=== PATIENT | female | born 1945 | race Caucasian/White ===

== ENCOUNTER 2018-09-02 19:05 | Emergency (ER) | payer MEDICARE, OTHER ==
[~2018-09-02] VITALS: Ht 162.6 cm; Wt 86.4 kg
[2018-09-02 19:06] VITALS: BP 158/72
[2018-09-02] MEDS ORDERED: ROSU5TAB4 (19:21)
[2018-09-02] MEDS ORDERED: ASPI1TAB PO (19:21)
[2018-09-02] MEDS ORDERED: REST0.057 (19:21)
[2018-09-02] MEDS ORDERED: AMLO5TAB6 (19:21)
[2018-09-02] MEDS ORDERED: LISI40TA (19:21)
[2018-09-02] MEDS ORDERED: TIMO0.5S29 (19:21)
[2018-09-02] MEDS ORDERED: FURO20TA2 (19:21)
[2018-09-02] MEDS ORDERED: predniSONE 20 MG TAB PO ONE (20:45)
[2018-09-02] MEDS ORDERED: diphenhydrAMINE 50 MG CAP PO ONE (20:45)
[2018-09-02] MEDS ORDERED: OMEPRAZOLE 20 MG CAP PO ONE (20:45)
[2018-09-02] MEDS ORDERED: PRIL20TA2 PO (20:48)
[2018-09-02] MEDS ORDERED: BENA25CA4 PO (20:48)
[2018-09-02] MEDS ORDERED: PRED10TA2 PO (20:48)
== END 2018-09-02 21:06 | disposition home or self-care (01) ==
LOC: M ED 19:05
DX: L25.9 Unspecified contact dermatitis, unspecified cause (principal); Z79.899 Other long term (current) drug therapy; Z79.82 Long term (current) use of aspirin; Z88.8 Allergy status to other drugs, medicaments and biological substances; Z91.048 Other nonmedicinal substance allergy status

== ENCOUNTER 2019-02-20 09:38 | Day surgery (SDC) | payer MEDICARE, OTHER ==
[~2019-02-20] VITALS: Ht 162.6 cm; Wt 82.9 kg
[~2019-02-20 09:38] MED LIST: ALL10TAB28 PO; AMLO5TAB6 PO; ASPI81TA26 PO; AZEL1SPR3; BENA25CA4 PO; CLOB0.0526; FURO20TA2 PO; HYDR25OI; LISI40TA; LOSA50TA88 PO; NS 1,000 ML IV ONE; PRED10TA2 PO; PRIL20TA2 PO; REST0.057 OU; ROSU5TAB4 PO; TIMO0.5S29 OU
[2019-02-20] MEDS ORDERED: LIDOCAINE 2% INJ 100 MG/5 ML SDV (FOR ANES.) As Ordered ONE (10:51)
[2019-02-20] MEDS ORDERED: PROPOFOL 200 MG/20 ML VIAL As Ordered ONE (10:51)
--- NOTE | 2019-02-20 10:53 | ROOR ---
Patient Name: Glo Atwood Procedure Date: 02/20/2019 10:40 AM Date of : 1945 Age: 73 Room: [facility] Gender: Female Note Status: Finalized Procedure: Upper Endoscopy + Biopsies Indications: Heartburn, Exclusion of Canales's esophagus Providers: Mina Zavala MD Referring MD: Ronnie Reardon MD Requesting Provider: Medicines: Monitored Anesthesia Care Complications: No immediate complications. Procedure: Pre-Anesthesia Assessment: - The heart rate, respiratory rate, oxygen saturations, blood pressure, adequacy of pulmonary ventilation, and response to care were monitored throughout the procedure. The Endoscope was introduced through the mouth, and advanced to the second part of duodenum. The upper GI endoscopy was accomplished without difficulty. The patient tolerated the procedure well. Findings: The Z-line was regular and was found 35 cm from the incisors. Multiple biopsies were obtained with cold forceps for evaluation to rule out Canales's Esophagus randomly at the gastroesophageal junction. A small hiatal hernia was present. No other significant abnormalities were identified in a careful examination of the stomach. The exam of the duodenum was otherwise normal. Impression: - Z-line regular, 35 cm from the incisors. - Small hiatal hernia. - Multiple biopsies were obtained at the gastroesophageal junction. - The examination was otherwise normal. Recommendation: - Patient has a contact number available for emergencies. The signs and symptoms of potential delayed complications were discussed with the patient. Return to normal activities tomorrow. Written discharge instructions were provided to the patient. - High fiber diet. - Discharge patient to home. - Follow an antireflux regimen. - Continue present medications. - Await pathology results. - Telephone GI clinic for pathology results in 1 week. - Return to referring physician. - The findings and recommendations were discussed with the patient's family. Mina Zavala MD Mina Zavala MD 02/20/2019 10:53:18 AM Electronically signed by Mina Zavala MD Number of Addenda: 0 Note Initiated On: 02/20/2019 10:40 AM Estimated Blood Loss: Estimated blood loss: none.
--- NOTE | 2019-02-20 11:12 | ROOR ---
Patient Name: Glo Atwood Procedure Date: 02/20/2019 10:40 AM Date of : 1945 Age: 73 Room: [facility] Gender: Female Note Status: Finalized Procedure: Total Colonoscopy to Cecum Indications: Screening for colorectal malignant neoplasm Providers: Mina Zavala MD Referring MD: Ronnie Reardon MD Requesting Provider: Medicines: Monitored Anesthesia Care Complications: No immediate complications. Procedure: Pre-Anesthesia Assessment: - The heart rate, respiratory rate, oxygen saturations, blood pressure, adequacy of pulmonary ventilation, and response to care were monitored throughout the procedure. The Colonoscope was introduced through the anus and advanced to the cecum, identified by appendiceal orifice and ileocecal valve. The colonoscopy was performed without difficulty. The patient tolerated the procedure well. The quality of the bowel preparation was excellent. Findings: The perianal and digital rectal examinations were normal. Non-bleeding internal hemorrhoids were found during retroflexion. The hemorrhoids were small and Grade I (internal hemorrhoids that do not prolapse). No other significant abnormalities were identified in a careful examination of the remainder of the colon. The exam was otherwise without abnormality on direct and retroflexion views. Impression: - Non-bleeding internal hemorrhoids. - The examination was otherwise normal on direct and retroflexion views. - No specimens collected. - The exam was otherwise normal to the cecum. Recommendation: - Patient has a contact number available for emergencies. The signs and symptoms of potential delayed complications were discussed with the patient. Return to normal activities tomorrow. Written discharge instructions were provided to the patient. - High fiber diet. - Discharge patient to home. - Continue present medications. - Repeat colonoscopy for symptoms only. - Return to referring physician. - The findings and recommendations were discussed with the patient's family. Mina Zavala MD Mina Zavala MD 02/20/2019 11:11:43 AM Electronically signed by Mina Zavala MD Number of Addenda: 0 Note Initiated On: 02/20/2019 10:40 AM Estimated Blood Loss: Estimated blood loss: none.
[2019-02-20 11:40] VITALS: BP 142/71
== END 2019-02-20 12:00 | disposition home or self-care (01) ==
LOC: M OPP 09:38
PROVIDERS: ATTEND Internal Medicine Gastroenterology
DX: K64.0 First degree hemorrhoids (principal); K44.9 Diaphragmatic hernia without obstruction or gangrene; R12 Heartburn; Z12.11 Encounter for screening for malignant neoplasm of colon

== ENCOUNTER → 2019-07-25 | Outpatient (REF) | payer MEDICARE, OTHER ==
[~2019-07-25] MED LIST changes: -ALL10TAB28 PO; +ALL10TAB29 PO; -NS 1,000 ML IV ONE; -ROSU5TAB4 PO; +ROSU5TAB5 PO
[2019-07-25 13:36] LABS: APPEARANCE, URINE CLEAR (CLEAR); BACTERIA, URINE AUTO NEGATIVE (NEGATIVE); BILIRUBIN, URINE AUTO NEGATIVE (NEGATIVE); BLOOD, URINE BLOOD NEGATIVE (NEGATIVE); COLOR, URINE YELLOW (YELLOW); GLUCOSE, URINE (UA) AUTO NEGATIVE (NEGATIVE); KETONE, URINE AUTO NEGATIVE (NEGATIVE); LEUKOCYTE ESTERASE, URINE AUTO TRACE (NEGATIVE); MUCUS, URINE SMALL (NEGATIVE); NITRITE, URINE AUTO NEGATIVE (NEGATIVE); PROTEIN, URINE AUTO NEGATIVE (NEGATIVE); RBC, URINE AUTO 1 /HPF (0-3); SPECIFIC GRAVITY URINE AUTO 1.014 (1.002-1.035); SQUAMOUS EPITHELIAL CELL UR AU 0 /HPF (0-6); UROBILINOGEN, URINE AUTO 0.2 mg/dL (0.0-2.0); WBC, URINE AUTO 4 /HPF (0-3)
== END ==
LOC: M SMT 13:15
PROVIDERS: ATTEND Nurse Practitioner Women's Health
DX: N39.0 Urinary tract infection, site not specified (principal)
CPT/HCPCS: 81001; 87086; G0463

== ENCOUNTER → 2019-08-01 | Outpatient (CLI) | payer MEDICARE, OTHER ==
--- NOTE | 2019-08-01 16:07 | REP ---
CT abdomen and pelvis without IV or oral contrast: Renal stone protocol. History: History of kidney stones. Pyuria. No comparison CT study. CT findings: Preliminary digital bottle label inspector radiograph shows a normal bowel gas pattern. There is a small sliding-type hiatal hernia. The lung bases are clear on axial CT images. No adrenal lesion is seen. There is a tiny accessory splenule. The liver and spleen are normal in size and homogeneous in texture. No abnormalities noted in the pancreas. The gallbladder is small and contracted but otherwise unremarkable. There is no evidence of hydronephrosis, cyst or mass. There is a 3 mm intrarenal calculus in the upper pole of the right kidney. There is no evidence of intrarenal nephrolithiasis on the left. No ureteral stone is observed. The bladder is largely empty at the time of scanning but unremarkable. Uterus is surgically absent. No pelvic mass or adenopathy is seen. Normal appendix is noted. Small and large bowel loops are unremarkable. Impression: There is a 3 mm intrarenal calculus in the upper pole of the right kidney. No other urinary tract calculus is seen. Status post hysterectomy. Small sliding hiatal hernia. Electronically Signed by Varinder Kearney MD 08/01/2019 05:21 P
== END ==
LOC: M RAD 15:02
PROVIDERS: ATTEND Nurse Practitioner Women's Health
DX: N20.0 Calculus of kidney (principal); K44.9 Diaphragmatic hernia without obstruction or gangrene; N39.0 Urinary tract infection, site not specified

== ENCOUNTER → 2021-03-11 | Outpatient (CLI) | payer MEDICARE, OTHER ==
[~2021-03-11] MED LIST changes: -ALL10TAB29 PO; +AMLO1TAB24 PO; -AMLO5TAB6 PO; +CETI-24 PO; -LISI40TA; +LISI40TA4
--- NOTE | 2021-03-11 12:06 | REP ---
INDICATION: PAIN IN LEFT KNEE COMPARISON: 01/15/2017. TECHNIQUE: Five views left knee. FINDINGS: There is no evidence of acute fracture, dislocation, or intrinsic bone disease.There is mild medial joint space narrowing. There is mild diffuse patellar spurring. There is moderate narrowing of the patellofemoral joint with subchondral sclerosis. There is no radiographic evidence of a significant joint effusion. IMPRESSION: No fracture or dislocation. There are degenerative changes as discussed above. <Electronically signed by Arvin Marr > 03/11/21 [id number]
== END ==
LOC: M PLAIMG 09:52 → M PLALAB 09:52
PROVIDERS: ATTEND Family Medicine
DX: M25.562 Pain in left knee (principal)

== ENCOUNTER → 2021-04-04 | Outpatient (CLI) | payer MEDICARE, OTHER ==
--- NOTE | 2021-04-04 13:00 | REPMRS ---
Patient History The patient states she has not had a clinical breast exam in over a year. Patient has history of other cancer at age 54. No known family history of cancer. No Hormone Replacement Therapy Patient states no breast complaints today. Patient has signed MRS History Sheet. Digital Woman Screen Mammo: April 04, 2021 - Exam #: [id number] Bilateral CC and MLO view(s) were taken. Technologist: Jerilyn Ziegler, RT Prior study comparison: September 19, 2019, bilateral digital mammo screening bilat, performed at [facility] [employer]. July 22, 2018, bilateral digital mammo screening bilat, performed at [facility]. June 19, 2015, bilateral digital mammo screening bilat, performed at [facility] [employer]. FINDINGS: There are scattered fibroglandular densities. The Volpara volumetric breast density category is:B. There is an area of possible spiculation in the lateral aspect of the right breast adjacent to some microcalcifications which merits further evaluation. It is only seen in the craniocaudal projection. There has been no other change in the appearance of the mammogram from the prior studies. There is a mild amount of scattered fibroglandular density which is fairly symmetric. There is no other interval development of dominant mass, architectural distortion, or grouped microcalcification suggestive of malignancy. 3-D tomosynthesis shows no additional findings. Assessment: BI-RADS/ACR category 0 mammogram, Incomplete: Need additional imaging evaluation and/or prior mammograms for comparison. Recommendation Ultrasound and special view mammogram of the right breast. This patient's [facility] Lifetime Breast Cancer Risk is estimated at 3.8 %. This mammogram was interpreted with the aid of an FDA-approved computer-aided dectection system. Electronically Signed By: Denzel Kearney MD 04/04/21 [id number]
== END ==
LOC: M WHC 11:53
PROVIDERS: ATTEND Family Medicine
DX: Z12.31 Encounter for screening mammogram for malignant neoplasm of breast (principal); Z85.89 Personal history of malignant neoplasm of other organs and systems; R92.8 Other abnormal and inconclusive findings on diagnostic imaging of breast

== ENCOUNTER → 2021-05-12 | Outpatient (CLI) | payer MEDICARE, OTHER ==
--- NOTE | 2021-05-16 15:01 | REPMRS ---
Patient History Patient has history of other cancer at age 54. No known family history of cancer. No Hormone Replacement Therapy Right breast Additional view completed as requested from screening mammogram Diagnostic Unilateral Mammo: Right Breast - May 12, 2021 - Exam #: [id number] Spot compression CC view(s) were taken of the right breast. Technologist: Kathy Neal, Technologist Prior study comparison: April 04, 2021, bilateral digital woman screen mammo performed at [facility] and [facility]. September 19, 2019, bilateral digital mammo screening bilat, performed at [facility]. FINDINGS: There are scattered fibroglandular densities. Right Diagnostic. Digital (2D) focal compression mammography was performed in the CC projection. Todays exam was compared to the prior exam/exams. By history, the patient presenrs with an are of architectural distortion in the right breast, seen only on the CC view, on her ecent screening mammogram. The focal compression magnification view of the right breast, performend, today, demonstrates the area of interest to be probably benign, IMPRESSION: BI-RADS Category 3-probably benign. Followup mammographic examination of the right breast recommended in 6 months. This mammogram was read with the assistance of Visualase,an FDA approved computer aided detection system for mammography. The lifetime Tyrer-Cuzick score is 3.8% Assessment: BI-RADS/ACR Category 3 mammogram. Probably Benign Findings. Recommendation Follow-up diagnostic mammogram of the right breast in 6 months (for women over age 40). This mammogram was interpreted with the aid of an FDA-approved computer-aided dectection system. Electronically Signed By: Isidro Hammond MD 05/16/21 2057
== END ==
LOC: M WHC 10:54
PROVIDERS: ATTEND Family Medicine
DX: Z12.39 Encounter for other screening for malignant neoplasm of breast (principal); Z85.9 Personal history of malignant neoplasm, unspecified

== ENCOUNTER → 2021-09-09 | Outpatient (CLI) | payer MEDICARE, OTHER ==
[~2021-09-09] MED LIST changes: +LOSA50TA28 PO; -LOSA50TA88 PO
== END ==
LOC: M PLAIMG 13:42
PROVIDERS: ATTEND Family Medicine
DX: M25.531 Pain in right wrist (principal)

== ENCOUNTER → 2021-11-10 | Outpatient (CLI) | payer MEDICARE, OTHER | LOC: M WHC 08:49 | PROVIDERS: ATTEND Family Medicine | DX: R92.2 Inconclusive mammogram (principal) | CPT/HCPCS: 77065; G0279 ==

== ENCOUNTER → 2022-04-14 | Outpatient (CLI) | payer MEDICARE, OTHER | LOC: M WHC 09:19 | PROVIDERS: ATTEND Family Medicine | DX: Z12.39 Encounter for other screening for malignant neoplasm of breast (principal); R92.2 Inconclusive mammogram | CPT/HCPCS: 77066; G0279 ==

== ENCOUNTER 2022-08-20 18:57 | Emergency (ER) | payer MEDICARE, OTHER ==
[~2022-08-20] VITALS: Ht 162.6 cm; Wt 81.8 kg
[2022-08-20 19:48] LABS: BASO # 0.1 10^3/uL (0.0-0.2); BASO % 0.3 % (0.0-1.0); EOS # 0.2 10^3/uL (0.0-0.5); EOS % 1.2 % (0.0-3.0); HEMATOCRIT 39.3 % (36.0-47.0); HEMOGLOBIN 13.2 g/dl (12.0-15.5); LYMPH # 2.3 10^3/uL (1.5-5.0); LYMPH % 15.8 % (24.0-44.0); MEAN CORPUSCULAR HEMOGLOBIN 31.9 pg (27.0-33.0); MEAN CORPUSCULAR HGB CONC 33.6 g/dl (32.0-36.5); MEAN CORPUSCULAR VOLUME 94.9 fl (80.0-96.0); NEUTROPHILS # 10.8 10^3/uL (1.5-8.5); NEUTROPHILS % 75.1 % (36.0-66.0); PLATELET COUNT, AUTOMATED 269 10^3/uL (150-450); RED BLOOD COUNT 4.14 10^6/uL (4.00-5.40); WHITE BLOOD COUNT 14.4 10^3/uL (4.0-10.0)
[2022-08-20 20:05] LABS: PARTIAL THROMBOPLASTIN TIME 25.4 SECONDS (24.8-34.2)
[2022-08-20 20:09] LABS: INR 0.95; PROTHROMBIN TIME 12.9 SECONDS (12.5-14.5)
[2022-08-20] MEDS ORDERED: MORPHINE 2 MG/ML 1ML VIAL IV ONE (20:10)
[2022-08-20] MEDS ORDERED: ONDANSETRON 4MG 2ML VIAL IV ONE (20:10)
[2022-08-20 20:23] LABS: CK-MB VALUE MASS < 1.0 NG/ML (<3.6); LIPASE 38 U/L (12-53)
[2022-08-20 20:25] LABS: ALBUMIN 3.5 G/DL (3.2-5.2); ALKALINE PHOSPHATASE 83 U/L (46-116); ALT/SGPT 16 U/L (7.0-40); AST/SGOT 22 U/L (<34); BILIRUBIN,DIRECT 0.1 MG/DL (<0.4); BILIRUBIN,TOTAL 0.4 MG/DL (0.3-1.2); BLOOD UREA NITROGEN 23 MG/DL (9-23); CALCIUM LEVEL 9.3 MG/DL (8.3-10.6); CARBON DIOXIDE LEVEL 23 MMOL/L (20-31); CHLORIDE LEVEL 108 MMOL/L (98-107); CREATININE FOR GFR 1.04 MG/DL (0.55-1.30); GLUCOSE, FASTING 129 MG/DL (74-106); POTASSIUM SERUM 3.6 MMOL/L (3.5-5.1); SODIUM LEVEL 143 MMOL/L (136-145); TOTAL PROTEIN 6.5 G/DL (5.7-8.2)
[2022-08-20 20:35] LABS: CPK CREATINE PHOSPHOKINASE 66 U/L (34-145); MB/CK RELATIVE INDEX 1.51 (< OR =4)
[2022-08-20] MEDS ORDERED: KETOROLAC 30 MG/ML 1ML VIAL IV ONE (22:00)
[2022-08-20 23:30] VITALS: BP 144/82
[2022-08-20] MEDS ORDERED: CEFDINIR 300 MG CAP (OMNICEF) PO ONE (23:30)
[2022-08-20] MEDS ORDERED: CEFD300C41 PO (23:36)
[2022-08-20] MEDS ORDERED: KETO10TAB PO (23:36)
[2022-08-21] MEDS ORDERED: KETOROLAC TROMETHAMINE 10 MG TAB PO ONE
== END 2022-08-21 00:16 | disposition home or self-care (01) ==
LOC: M ED 18:57
DX: N39.0 Urinary tract infection, site not specified (principal); N23 Unspecified renal colic; Z87.442 Personal history of urinary calculi; K21.9 Gastro-esophageal reflux disease without esophagitis; F41.9 Anxiety disorder, unspecified; Z79.82 Long term (current) use of aspirin; Z79.899 Other long term (current) drug therapy; Z88.3 Allergy status to other anti-infective agents; Z91.89 Other specified personal risk factors, not elsewhere classified
CPT/HCPCS: 74176; 80048; 80076; 81000; 81015; 82550; 82553; 83605; 83690; 84484; 85025; 85610; 85730; 87086; 93005; 93041; 96374; 96375; 99285; J1885; J2270; J2405

== ENCOUNTER → 2022-09-09 | Outpatient (REF) | payer MEDICARE, OTHER ==
[~2022-09-09] MED LIST changes: +CEFD300C41 PO; +KETO10TAB PO
[2022-09-09 17:44] LABS: APPEARANCE, URINE MANUAL CLEAR (CLEAR); COLOR, URINE MANUAL YELLOW (YELLOW)
[2022-09-09 17:45] LABS: SPECIFIC GRAVITY,URINE MANUAL 1.025 (1.002-1.035)
[2022-09-09 17:46] LABS: BILIRUBIN, URINE MANUAL NEGATIVE (NEGATIVE); BLOOD URINE MANUAL NEGATIVE (NEGATIVE); GLUCOSE, URINE (UA) MANUAL NEGATIVE (NEGATIVE); KETONE, URINE MANUAL NEGATIVE (NEGATIVE); LEUKOCYTE ESTERASE, URINE MAN POSITIVE (NEGATIVE); NITRITE, URINE MANUAL NEGATIVE (NEGATIVE); PROTEIN, URINE MANUAL NEGATIVE (NEGATIVE); UROBILINOGEN, URINE MANUAL NORMAL (NORMAL)
[2022-09-09 18:30] LABS: RBC, URINE 0-1 /hpf (0-3); SQUAMOUS EPITHELIAL CELL URINE NONE SEEN /hpf (SMALL AMT)
[2022-09-09 18:31] LABS: BACTERIA, URINE NONE SEEN; CALCIUM OXALATE CRYSTALS,URINE SMALL AMOUNT /hpf; HYALINE CAST, URINE NONE SEEN /lpf (0-1)
== END ==
LOC: M SMT 16:50
PROVIDERS: ATTEND Nurse Practitioner Women's Health
DX: R31.29 Other microscopic hematuria (principal)

== ENCOUNTER → 2022-09-29 | Outpatient (CLI) | payer MEDICARE, OTHER ==
[~2022-09-29] MED LIST changes: +ISOVUE-370 76% 100ML VIAL As Ordered ONE
== END ==
LOC: M RAD 14:56
PROVIDERS: ATTEND Nurse Practitioner Women's Health
DX: R31.29 Other microscopic hematuria (principal)
CPT/HCPCS: 74178; Q9967

== ENCOUNTER 2023-03-20 11:17 | Inpatient (IN) | payer MEDICARE, OTHER ==
[~2023-03-20] VITALS: Ht 162.6 cm; Wt 78.0 kg
[2023-03-20] MEDS: ROSUVASTATIN 10 MG TAB (CRESTOR) PO SCH (09:00)
[2023-03-20] MEDS: OMEPRAZOLE 20MG CAP PO SCH (09:00)
[~2023-03-20 11:17] MED LIST changes: -ISOVUE-370 76% 100ML VIAL As Ordered ONE; +TIMO0.5S20 OU; -TIMO0.5S29 OU
[2023-03-20] MEDS ORDERED: ISOVUE-370 76% 100ML VIAL As Ordered ONE (12:05)
[2023-03-20] MEDS ORDERED: MECLIZINE 25 MG TABLET PO ONE (12:50)
[2023-03-20] MEDS ORDERED: ONDANSETRON 4MG ORAL DISINTEGRATING TAB PO ONE (12:50)
[2023-03-20] MEDS ORDERED: amLODIPine 5 MG TAB PO ONE (16:40)
[2023-03-20] MEDS ORDERED: LOSARTAN 50MG TABLET PO ONE (16:40)
[2023-03-20] MEDS ORDERED: TIMOLOL MALEATE 0.5% OPHTH SOLN 5 ML OU SCH (16:45)
[2023-03-20 16:52] LABS: HEMATOCRIT 40.7 % (36.0-47.0); HEMOGLOBIN 13.4 g/dl (12.0-15.5); MEAN CORPUSCULAR HEMOGLOBIN 31.8 pg (27.0-33.0); MEAN CORPUSCULAR HGB CONC 32.9 g/dl (32.0-36.5); MEAN CORPUSCULAR VOLUME 96.4 fl (80.0-96.0); PLATELET COUNT, AUTOMATED 237 10^3/uL (150-450); RED BLOOD COUNT 4.22 10^6/uL (4.00-5.40); WHITE BLOOD COUNT 8.9 10^3/uL (4.0-10.0)
[2023-03-20] MEDS ORDERED: FUROSEMIDE 20 MG TAB PO ONE (17:25)
[2023-03-20] MEDS ORDERED: **hydrALAZINE** 10 MG TAB PO PRN (17:25)
[2023-03-20] MEDS ORDERED: ACETAMINOPHEN TAB 650MG DOSE (2X325MG) PO PRN (17:25)
[2023-03-20] MEDS ORDERED: TOPIRAMATE (TopAMAX) 25 MG TAB PO ONE (18:00)
[2023-03-20] MEDS ORDERED: OMEP20TA18 PO (18:25)
[2023-03-20] MEDS ORDERED: OYST500T92 PO (18:27)
[2023-03-20] MEDS ORDERED: HOME MED LIST COMPLETE! XX SCH ×2 (18:30→18:35)
[2023-03-20 19:15] LABS: ALBUMIN 3.5 G/DL (3.2-5.2); ALKALINE PHOSPHATASE 83 U/L (46-116); ALT/SGPT 13 U/L (7.0-40); AST/SGOT 15 U/L (<34); BILIRUBIN,TOTAL 0.8 MG/DL (0.3-1.2); BLOOD UREA NITROGEN 16 MG/DL (9-23); CARBON DIOXIDE LEVEL 24 MMOL/L (20-31); CHLORIDE LEVEL 109 MMOL/L (98-107); CREATININE FOR GFR 0.74 MG/DL (0.55-1.30); GLOMERULAR FILTRATION RATE > 60.0 (>39); GLUCOSE, FASTING 108 MG/DL (74-106); HEMATOCRIT 40.8 % (36.0-47.0); HEMOGLOBIN 13.6 g/dl (12.0-15.5); MEAN CORPUSCULAR HEMOGLOBIN 31.9 pg (27.0-33.0); MEAN CORPUSCULAR HGB CONC 33.3 g/dl (32.0-36.5); MEAN CORPUSCULAR VOLUME 95.6 fl (80.0-96.0); PLATELET COUNT, AUTOMATED 264 10^3/uL (150-450); RED BLOOD COUNT 4.27 10^6/uL (4.00-5.40); SODIUM LEVEL 145 MMOL/L (136-145); TOTAL PROTEIN 6.4 G/DL (5.7-8.2); WHITE BLOOD COUNT 12.6 10^3/uL (4.0-10.0)
[2023-03-20 19:34] LABS: INR 0.98; PROTHROMBIN TIME 13.2 SECONDS (12.5-14.5)
[2023-03-20 19:35] LABS: PARTIAL THROMBOPLASTIN TIME 26.7 SECONDS (24.8-34.2)
[2023-03-20 21:21] VITALS: BP 143/79; TEMP 99; O2SAT 98
[2023-03-20] MEDS: MECLIZINE 25 MG TABLET PO SCH (22:04)
[2023-03-20] MEDS: TOPIRAMATE (TopAMAX) 25 MG TAB PO SCH (22:04)
[2023-03-20] MEDS: ENOXAPARIN 40MG/0.4ML SYRINGE (J1650 PER 10MG) SC SCH (22:05)
[2023-03-20] MEDS: ONDANSETRON 4MG 2ML VIAL IV PRN (23:18)
[2023-03-21 05:52] VITALS: BP 140/77; TEMP 97.7; O2SAT 96
[2023-03-21 06:19] LABS: HEMATOCRIT 39.5 % (36.0-47.0); HEMOGLOBIN 13.1 g/dl (12.0-15.5); MEAN CORPUSCULAR HEMOGLOBIN 31.7 pg (27.0-33.0); MEAN CORPUSCULAR HGB CONC 33.2 g/dl (32.0-36.5); MEAN CORPUSCULAR VOLUME 95.6 fl (80.0-96.0); PLATELET COUNT, AUTOMATED 256 10^3/uL (150-450); RED BLOOD COUNT 4.13 10^6/uL (4.00-5.40); WHITE BLOOD COUNT 11.9 10^3/uL (4.0-10.0)
[2023-03-21 06:49] LABS: ALBUMIN 3.4 G/DL (3.2-5.2); ALKALINE PHOSPHATASE 76 U/L (46-116); ALT/SGPT 12 U/L (7.0-40); AST/SGOT 13 U/L (<34); BLOOD UREA NITROGEN 17 MG/DL (9-23); CALCIUM LEVEL 8.5 MG/DL (8.3-10.6); CARBON DIOXIDE LEVEL 26 MMOL/L (20-31); CHLORIDE LEVEL 107 MMOL/L (98-107); CREATININE FOR GFR 0.85 MG/DL (0.55-1.30); GLOMERULAR FILTRATION RATE > 60.0 (>39); GLUCOSE, FASTING 86 MG/DL (74-106); POTASSIUM SERUM 3.6 MMOL/L (3.5-5.1); SODIUM LEVEL 143 MMOL/L (136-145)
[2023-03-21] MEDS ORDERED: TIMOLOL MALEATE 0.5% OPHTH SOLN 5 ML OU SCH (09:00)
[2023-03-21] MEDS ORDERED: LOSARTAN 50MG TABLET PO SCH (09:00)
[2023-03-21] MEDS: ONDANSETRON 4MG 2ML VIAL IV PRN (09:34)
[2023-03-21] MEDS: TIMOLOL MALEATE 0.5% OPHTH SOLN 5 ML OU SCH (09:34)
[2023-03-21] MEDS: ROSUVASTATIN 10 MG TAB (CRESTOR) PO SCH (09:35)
[2023-03-21] MEDS: ASPIRIN 81MG ENTERIC TABLET PO SCH (09:35)
[2023-03-21] MEDS: amLODIPine 5 MG TAB PO SCH (09:36)
[2023-03-21] MEDS: TOPIRAMATE (TopAMAX) 25 MG TAB PO SCH ×2 (09:36→21:00)
[2023-03-21] MEDS: OMEPRAZOLE 20MG CAP PO SCH (09:36)
[2023-03-21] MEDS: MECLIZINE 25 MG TABLET PO SCH ×2 (09:36→21:00)
[2023-03-21] MEDS: FUROSEMIDE 20 MG TAB PO SCH (09:36)
[2023-03-21] MEDS ORDERED: PILL CUTTER 1 EACH XX PRN (09:40)
[2023-03-21] MEDS ORDERED: PILL CUTTER 1 EACH XX ONE (09:42)
[2023-03-21 14:00] VITALS: BP 128/67; TEMP 97.9; O2SAT 98
[2023-03-21 20:40] VITALS: BP 127/66; TEMP 98.1; O2SAT 96
[2023-03-21] MEDS: ENOXAPARIN 40MG/0.4ML SYRINGE (J1650 PER 10MG) SC SCH (21:00)
[2023-03-22 05:40] VITALS: BP 120/60; TEMP 97.9; O2SAT 95
[2023-03-22 05:43] LABS: HEMATOCRIT 37.6 % (36.0-47.0); HEMOGLOBIN 12.3 g/dl (12.0-15.5); MEAN CORPUSCULAR HEMOGLOBIN 31.9 pg (27.0-33.0); MEAN CORPUSCULAR HGB CONC 32.7 g/dl (32.0-36.5); MEAN CORPUSCULAR VOLUME 97.4 fl (80.0-96.0); PLATELET COUNT, AUTOMATED 238 10^3/uL (150-450); RED BLOOD COUNT 3.86 10^6/uL (4.00-5.40)
[2023-03-22 06:09] LABS: ALBUMIN 3.1 G/DL (3.2-5.2); BILIRUBIN,TOTAL 0.8 MG/DL (0.3-1.2); CALCIUM LEVEL 8.7 MG/DL (8.3-10.6); CREATININE FOR GFR 1.22 MG/DL (0.55-1.30); GLOMERULAR FILTRATION RATE 45.6 (>39); POTASSIUM SERUM 3.5 MMOL/L (3.5-5.1); TOTAL PROTEIN 5.7 G/DL (5.7-8.2)
[2023-03-22] MEDS ORDERED: LOSARTAN 25 MG TAB PO SCH (09:00)
[2023-03-22] MEDS: amLODIPine 5 MG TAB PO SCH (09:00)
[2023-03-22] MEDS: TOPIRAMATE (TopAMAX) 25 MG TAB PO SCH ×2 (09:07→20:48)
[2023-03-22] MEDS: ASPIRIN 81MG ENTERIC TABLET PO SCH (09:07)
[2023-03-22] MEDS: FUROSEMIDE 20 MG TAB PO SCH (09:08)
[2023-03-22] MEDS: OMEPRAZOLE 20MG CAP PO SCH (09:08)
[2023-03-22] MEDS: ROSUVASTATIN 10 MG TAB (CRESTOR) PO SCH (09:08)
[2023-03-22] MEDS: TIMOLOL MALEATE 0.5% OPHTH SOLN 5 ML OU SCH (09:11)
[2023-03-22 09:45] VITALS: BP 87/52
[2023-03-22 09:50] VITALS: BP 90/53
[2023-03-22 12:40] VITALS: BP 132/72; TEMP 98.6; O2SAT 97
[2023-03-22] MEDS ORDERED: MECLIZINE 25 MG TABLET PO ONE (13:00)
[2023-03-22 14:00] VITALS: BP 125/66; TEMP 97.9; O2SAT 97
[2023-03-22] MEDS: METAMUCIL (PSYLLIUM) PACKET PO SCH (14:39)
[2023-03-22 20:36] VITALS: BP 129/66; TEMP 98.1; O2SAT 95
[2023-03-22] MEDS: ENOXAPARIN 40MG/0.4ML SYRINGE (J1650 PER 10MG) SC SCH (20:48)
[2023-03-22] MEDS: MECLIZINE 25 MG TABLET PO SCH (21:00)
[2023-03-23 05:52] LABS: HEMATOCRIT 37.1 % (36.0-47.0); HEMOGLOBIN 12.3 g/dl (12.0-15.5); MEAN CORPUSCULAR HEMOGLOBIN 31.9 pg (27.0-33.0); MEAN CORPUSCULAR HGB CONC 33.2 g/dl (32.0-36.5); MEAN CORPUSCULAR VOLUME 96.4 fl (80.0-96.0); PLATELET COUNT, AUTOMATED 232 10^3/uL (150-450); RED BLOOD COUNT 3.85 10^6/uL (4.00-5.40); WHITE BLOOD COUNT 10.9 10^3/uL (4.0-10.0)
[2023-03-23 06:00] VITALS: BP 126/66; TEMP 97.7; O2SAT 97
[2023-03-23 06:17] LABS: ALKALINE PHOSPHATASE 75 U/L (46-116); ALT/SGPT < 9 U/L (7.0-40); AST/SGOT 11 U/L (<34); BILIRUBIN,TOTAL 0.6 MG/DL (0.3-1.2); BLOOD UREA NITROGEN 24 MG/DL (9-23); CALCIUM LEVEL 8.5 MG/DL (8.3-10.6); CARBON DIOXIDE LEVEL 25 MMOL/L (20-31); CHLORIDE LEVEL 112 MMOL/L (98-107); CREATININE FOR GFR 1.01 MG/DL (0.55-1.30); GLOMERULAR FILTRATION RATE 56.7 (>39); GLUCOSE, FASTING 87 MG/DL (74-106); POTASSIUM SERUM 3.4 MMOL/L (3.5-5.1); SODIUM LEVEL 148 MMOL/L (136-145); TOTAL PROTEIN 5.7 G/DL (5.7-8.2)
[2023-03-23] MEDS ORDERED: POTASSIUM CHLORIDE 10MEQ SR TABLET PO ONE (07:05)
[2023-03-23] MEDS: ASPIRIN 81MG ENTERIC TABLET PO SCH (08:36)
[2023-03-23] MEDS: METAMUCIL (PSYLLIUM) PACKET PO SCH (08:36)
[2023-03-23] MEDS: MECLIZINE 25 MG TABLET PO SCH (08:37)
[2023-03-23] MEDS: ROSUVASTATIN 10 MG TAB (CRESTOR) PO SCH (08:37)
[2023-03-23] MEDS: OMEPRAZOLE 20MG CAP PO SCH (08:37)
[2023-03-23] MEDS: FUROSEMIDE 20 MG TAB PO SCH (08:38)
[2023-03-23 08:39] VITALS: BP 133/62
[2023-03-23] MEDS: amLODIPine 5 MG TAB PO SCH (08:39)
[2023-03-23] MEDS: TOPIRAMATE (TopAMAX) 25 MG TAB PO SCH (08:39)
[2023-03-23] MEDS: TIMOLOL MALEATE 0.5% OPHTH SOLN 5 ML OU SCH (08:40)
[2023-03-23] MEDS ORDERED: TOPA1TAB PO (10:17)
[2023-03-23] MEDS ORDERED: MECL-86 PO (10:17)
== END 2023-03-23 12:12 | disposition home health service (06) | DRG 149 ==
LOC: EDBD 11:17 → M ED 11:17 → M ED INP 17:23 → ENRESERV 19:52 → M MSPAV 21:21
PROVIDERS: ADMIT Internal Medicine; ATTEND Internal Medicine
DX: H81.10 Benign paroxysmal vertigo, unspecified ear (principal); E87.0 Hyperosmolality and hypernatremia; H81.20 Vestibular neuronitis, unspecified ear; E87.5 Hyperkalemia; G43.909 Migraine, unspecified, not intractable, without status migrainosus; I10 Essential (primary) hypertension; I95.1 Orthostatic hypotension; E78.5 Hyperlipidemia, unspecified; H40.9 Unspecified glaucoma; M50.30 Other cervical disc degeneration, unspecified cervical region; H55.00 Unspecified nystagmus; L82.1 Other seborrheic keratosis; F41.9 Anxiety disorder, unspecified; M19.90 Unspecified osteoarthritis, unspecified site; R11.0 Nausea; I65.23 Occlusion and stenosis of bilateral carotid arteries; I67.2 Cerebral atherosclerosis; I16.0 Hypertensive urgency; K21.9 Gastro-esophageal reflux disease without esophagitis; Z79.82 Long term (current) use of aspirin; Z79.899 Other long term (current) drug therapy; Z88.8 Allergy status to other drugs, medicaments and biological substances; Z91.048 Other nonmedicinal substance allergy status; Z87.442 Personal history of urinary calculi

== ENCOUNTER → 2023-04-27 | Outpatient (CLI) | payer MEDICARE, OTHER ==
[~2023-04-27] MED LIST changes: +MECL-86 PO; +OMEP20TA18 PO; +OYST500T92 PO; +TOPA1TAB PO
== END ==
LOC: M WHC 10:34
PROVIDERS: ATTEND Family Medicine
DX: Z12.31 Encounter for screening mammogram for malignant neoplasm of breast (principal)

== ENCOUNTER 2023-08-03 14:28 | Observation (INO) | payer MEDICARE, OTHER ==
[~2023-08-03] VITALS: Ht 162.6 cm; Wt 82.6 kg
[~2023-08-03 14:28] MED LIST changes: +CEFD1CAP9 PO; -CEFD300C41 PO
[2023-08-03 15:17] LABS: BASO % 0.3 % (0.0-1.0); EOS # 0.1 10^3/uL (0.0-0.5); EOS % 1.1 % (0.0-3.0); HEMATOCRIT 38.9 % (36.0-47.0); HEMOGLOBIN 12.6 g/dl (12.0-15.5); LYMPH # 1.1 10^3/uL (1.5-5.0); LYMPH % 10.7 % (24.0-44.0); MEAN CORPUSCULAR HEMOGLOBIN 31.8 pg (27.0-33.0); MEAN CORPUSCULAR HGB CONC 32.4 g/dl (32.0-36.5); MEAN CORPUSCULAR VOLUME 98.2 fl (80.0-96.0); MONO % 16.2 % (2.0-8.0); NEUTROPHILS # 7.3 10^3/uL (1.5-8.5); NEUTROPHILS % 71.3 % (36.0-66.0); PLATELET COUNT, AUTOMATED 205 10^3/uL (150-450); RED BLOOD COUNT 3.96 10^6/uL (4.00-5.40); WHITE BLOOD COUNT 10.2 10^3/uL (4.0-10.0)
[2023-08-03 15:27] LABS: MONO # 1.7 10^3/uL (0.0-0.8)
[2023-08-03 15:41] LABS: BLOOD UREA NITROGEN 20 MG/DL (9-23); CALCIUM LEVEL 8.9 MG/DL (8.3-10.6); CARBON DIOXIDE LEVEL 23 MMOL/L (20-31); CHLORIDE LEVEL 108 MMOL/L (98-107); CK-MB VALUE MASS < 1.0 NG/ML (<3.6); CPK CREATINE PHOSPHOKINASE 45 U/L (34-145); CREATININE FOR GFR 1.03 MG/DL (0.55-1.30); GLOMERULAR FILTRATION RATE 55.5 (>39); GLUCOSE, FASTING 134 MG/DL (74-106); MAGNESIUM LEVEL 2.1 MG/DL (1.8-2.4); MB/CK RELATIVE INDEX 2.22 (< OR =4); POTASSIUM SERUM 3.4 MMOL/L (3.5-5.1); SODIUM LEVEL 141 MMOL/L (136-145)
[2023-08-03 15:43] LABS: FREE T4 1.06 NG/DL (0.89-1.76); THYROID STIMULATING HORMONE 1.828 uIU/ML (0.55-4.78)
[2023-08-03] MEDS ORDERED: DERMABOND TOPICAL SKIN ADHESIVE TOP ONE (16:45)
[2023-08-03 16:54] LABS: CK-MB VALUE MASS < 1.0 NG/ML (<3.6)
[2023-08-03 16:56] LABS: CPK CREATINE PHOSPHOKINASE 63 U/L (34-145); MB/CK RELATIVE INDEX 1.58 (< OR =4)
[2023-08-03] MEDS ORDERED: MOM 30ML SUSPENSION UDC PO PRN (19:35)
[2023-08-03] MEDS ORDERED: ACETAMINOPHEN TAB 650MG DOSE (2X325MG) PO PRN (19:35)
[2023-08-03] MEDS ORDERED: LR 1,000 ML IV SCH (20:50)
[2023-08-03 21:41] LABS: ALBUMIN 3.3 G/DL (3.2-5.2); ALKALINE PHOSPHATASE 70 U/L (46-116); ALT/SGPT 17 U/L (7.0-40); AST/SGOT 18 U/L (<34); BILIRUBIN,DIRECT 0.2 MG/DL (<0.4); BILIRUBIN,TOTAL 0.5 MG/DL (0.3-1.2); TOTAL PROTEIN 6.1 G/DL (5.7-8.2)
[2023-08-03] MEDS ORDERED: LOSARTAN 50MG TABLET PO ONE (22:00)
[2023-08-04] MEDS ORDERED: CLOB0.0526 TOP (00:17)
[2023-08-04] MEDS ORDERED: REST0.05 OU (00:17)
[2023-08-04] MEDS ORDERED: FURO20TA2 PO (00:17)
[2023-08-04] MEDS ORDERED: LOSA50TA28 PO (00:17)
[2023-08-04] MEDS ORDERED: MECL-86 PO (00:17)
[2023-08-04] MEDS ORDERED: AUGM0.0512 TOP (00:19)
[2023-08-04] MEDS ORDERED: HOME MED LIST COMPLETE! XX SCH (00:20)
[2023-08-04 06:32] LABS: HEMATOCRIT 37.4 % (36.0-47.0); HEMOGLOBIN 12.6 g/dl (12.0-15.5); MEAN CORPUSCULAR HEMOGLOBIN 32.3 pg (27.0-33.0); MEAN CORPUSCULAR HGB CONC 33.7 g/dl (32.0-36.5); MEAN CORPUSCULAR VOLUME 95.9 fl (80.0-96.0); PLATELET COUNT, AUTOMATED 193 10^3/uL (150-450); WHITE BLOOD COUNT 10.1 10^3/uL (4.0-10.0)
[2023-08-04 06:57] LABS: BLOOD UREA NITROGEN 15 MG/DL (9-23); CALCIUM LEVEL 8.9 MG/DL (8.3-10.6); CARBON DIOXIDE LEVEL 24 MMOL/L (20-31); CHLORIDE LEVEL 112 MMOL/L (98-107); CREATININE FOR GFR 0.75 MG/DL (0.55-1.30); GLOMERULAR FILTRATION RATE > 60.0 (>39); GLUCOSE, FASTING 103 MG/DL (74-106); POTASSIUM SERUM 3.8 MMOL/L (3.5-5.1); SODIUM LEVEL 145 MMOL/L (136-145)
[2023-08-04] MEDS ORDERED: LOSARTAN 50MG TABLET PO SCH (09:00)
[2023-08-04] MEDS: ENOXAPARIN 40MG/0.4ML SYRINGE (J1650 PER 10MG) SC SCH (09:30)
[2023-08-04] MEDS: NIRMATRELVIR/RITONAVIR CO-PACK (EMERGENCY USE AUTH) PO SCH ×2 (09:31→21:45)
[2023-08-04] MEDS: atenoloL 25 MG TAB PO SCH (11:34)
[2023-08-04] MEDS: guaiFENesin ER TABLET 600 MG TAB PO SCH ×2 (12:25→20:18)
[2023-08-04 15:03] VITALS: BP 168/88; TEMP 97.7; O2SAT 97
[2023-08-04] MEDS ORDERED: MUCI600T31 PO (18:30)
[2023-08-04] MEDS ORDERED: NIRM1TAB PO (18:30)
[2023-08-04] MEDS ORDERED: ATEN25TA PO (18:30)
[2023-08-04] MEDS ORDERED: LOSA-528 PO (18:30)
[2023-08-04 20:12] VITALS: BP 182/95; TEMP 97.7; O2SAT 96
[2023-08-04 20:17] VITALS: BP 162/78
[2023-08-04] MEDS: LOSARTAN 50MG TABLET PO SCH (20:18)
[2023-08-04] MEDS ORDERED: NIRMATRELVIR/RITONAVIR (RENAL) CO-PACK (EUA) PO SCH (21:00)
[2023-08-05 06:00] VITALS: BP 138/84; TEMP 97.3; O2SAT 96
[2023-08-05 08:28] VITALS: BP 168/84
[2023-08-05] MEDS: atenoloL 25 MG TAB PO SCH (08:28)
[2023-08-05] MEDS: LOSARTAN 50MG TABLET PO SCH (08:28)
[2023-08-05] MEDS: guaiFENesin ER TABLET 600 MG TAB PO SCH (08:29)
[2023-08-05] MEDS: NIRMATRELVIR/RITONAVIR CO-PACK (EMERGENCY USE AUTH) PO SCH (08:30)
[2023-08-05] MEDS: ENOXAPARIN 40MG/0.4ML SYRINGE (J1650 PER 10MG) SC SCH (08:31)
== END 2023-08-05 11:36 | disposition home or self-care (01) ==
LOC: M ED 14:28 → EDBD 14:28 → M ED INP 19:33 → M MSPAV 08-04 15:08
PROVIDERS: ADMIT Internal Medicine; ATTEND General Practice
DX: R55 Syncope and collapse (principal); U07.1 COVID-19; I16.0 Hypertensive urgency; S01.111A Laceration without foreign body of right eyelid and periocular area, initial encounter; W19.XXXA Unspecified fall, initial encounter; Y92.89 Other specified places as the place of occurrence of the external cause; Y93.89 Activity, other specified; E78.5 Hyperlipidemia, unspecified; K21.9 Gastro-esophageal reflux disease without esophagitis; F41.9 Anxiety disorder, unspecified; G43.B0 Ophthalmoplegic migraine, not intractable; G43.709 Chronic migraine without aura, not intractable, without status migrainosus; M50.30 Other cervical disc degeneration, unspecified cervical region; I11.0 Hypertensive heart disease with heart failure; I50.9 Heart failure, unspecified; I65.23 Occlusion and stenosis of bilateral carotid arteries; H40.9 Unspecified glaucoma; M19.90 Unspecified osteoarthritis, unspecified site; Z87.442 Personal history of urinary calculi; Z88.8 Allergy status to other drugs, medicaments and biological substances; Z91.048 Other nonmedicinal substance allergy status; Z80.1 Family history of malignant neoplasm of trachea, bronchus and lung; Z84.1 Family history of disorders of kidney and ureter; Z83.3 Family history of diabetes mellitus; Z82.3 Family history of stroke; Z82.49 Family history of ischemic heart disease and other diseases of the circulatory system; Z79.899 Other long term (current) drug therapy; Z79.82 Long term (current) use of aspirin
CPT/HCPCS: 12013; 36415; 70450; 70486; 71045; 72125; 80048; 80076; 82077; 82550; 82553; 83605; 83735; 84439; 84443; 84484; 85025; 85027; 87486; 87581; 87633; 87798; 93005; 93041; 93306; 94760; 96372; 97161; 99285; G0378; J1650

== ENCOUNTER → 2024-05-04 | Outpatient (CLI) | payer MEDICARE, OTHER ==
[~2024-05-04] MED LIST changes: +ATEN25TA PO; +AUGM0.0512 TOP; +CLOB0.0526 TOP; +LOSA-528 PO; +MUCI600T31 PO; +NIRM1TAB PO; +REST0.05 OU; +ROSU5TAB40 PO; -ROSU5TAB5 PO
== END ==
LOC: M WHC 13:08
PROVIDERS: ATTEND Family Medicine
DX: Z12.31 Encounter for screening mammogram for malignant neoplasm of breast (principal)

== ENCOUNTER → 2025-04-20 | Outpatient (REF) | payer MEDICARE, OTHER ==
[~2025-04-20] MED LIST changes: +LISI40TA10; -LISI40TA4; -ROSU5TAB40 PO; +ROSU5TAB49 PO
== END ==
LOC: M SFHCDERM 17:19
PROVIDERS: ATTEND Nurse Practitioner Family
DX: C44.622 Squamous cell carcinoma of skin of right upper limb, including shoulder (principal)

== ENCOUNTER → 2025-05-11 | Outpatient (CLI) | payer MEDICARE, OTHER | LOC: M WHC 10:37 | PROVIDERS: ATTEND Family Medicine | DX: Z12.31 Encounter for screening mammogram for malignant neoplasm of breast (principal); R92.323 Mammographic fibroglandular density, bilateral breasts ==

== ENCOUNTER → 2025-05-24 | Outpatient (REF) | payer MEDICARE, OTHER | LOC: M SFHCDERM 08:33 | PROVIDERS: ATTEND Physician Assistant | DX: C44.622 Squamous cell carcinoma of skin of right upper limb, including shoulder (principal) ==